=== PATIENT | female | born 1950 | race Caucasian/White ===

== ENCOUNTER 2018-11-11 04:17 | Emergency (ER) | payer MEDICARE, OTHER ==
--- NOTE | 2018-11-11 04:35 | ED ---
Back Pain - HPI Summary HPI Summary: A 67 y/o F presents to ED c/o L-sided back pain radiating to her underarm and L ribs onset five days ago. She was in the car and leaned over the console and hit her L-side. She had pain immediately, and the pain has been worsening. She s been taking OTC medications and hot showers to mild relief. Aggravating factors: sitting, lying, sneezing. There is no bruising on her L-side. She took 2 tabs ASA 500mg ATG [employer]. - History of Current Complaint Chief Complaint: EDGeneral Stated Complaint: POSS BRUISED RIBS/IN PAIN PER PT Hx Obtained From: Patient, Family/Sales Project Manager Onset/Duration: Sudden Onset, Lasting Days, Still Present Onset/Duration: Traumatic, Still Present Timing: Constant Back Pain Location: Is Diffuse - L back, L armpit, L ribs Severity Initially: Moderate Severity Currently: Severe Pain Intensity: 8 Pain Scale Used: 0-10 Numeric Aggravating Symptom(s): Other - sitting, lying, sneezing Alleviating Symptom(s): Heat - hot showers, mildly, OTC Meds - mildly Associated Signs And Symptoms: Negative: Bruising - Allergies/Home Medications Allergies/Adverse Reactions: Allergies Allergy/AdvReac Type Severity Reaction Status Date / Time No Known Allergies Allergy Verified 11/11/18 04:23 PMH/Surg Hx/FS Hx/Imm Hx Previously Healthy: No Cardiovascular History: Reports: Hx Hypertension Neurological History: Denies: Hx Dementia Infectious Disease History: No Infectious Disease History: Denies: Traveled Outside the [place] in Last 30 Days - Family History Known Family History: Positive: Non-Contributory - Social History Occupation: Retired Lives: With Family Review of Systems Musculoskeletal: Other - pos: L-sided back, armpit and rib pain Negative: Bruising All Other Systems Reviewed And Are Negative: Yes Physical Exam - Summary Physical Exam Summary: Appearance: Well-appearing, Well-nourished, lying in bed comfortable Skin: Warm, dry, no obvious rash Eyes: sclera anicteric, no conjunctival pallor ENT: mucous membranes moist Neck: deferred Respiratory: No signs of respiratory distress Cardiovascular: Appears well perfused, pulses are nml Abdomen: deferred Musculoskeletal: Focal muscle tenderness and spasm in L paravertebral muscles in L upper lumber spine Neurological: Awake and alert, mentation is normal, speech is fluent and appropriate Psychiatric: affect is normal, does not appear anxious or depressed Triage Information Reviewed: Yes Vital Signs On Initial Exam: Initial Vitals Temp Pulse Resp BP Pulse Ox 97.2 F 91 16 176/101 98 11/11/18 04:19 11/11/18 04:19 11/11/18 04:19 11/11/18 04:19 11/11/18 04:19 Vital Signs Reviewed: Yes Procedures - Procedure Summary Procedure Summary: Trigger point injection of 3mL of 50-50 mix of 0.5% Marcaine with Epi and 2% Lido with Epi in area of maximum tenderness in lower back. Diagnostics - Vital Signs Vital Signs Temp Pulse Resp BP Pulse Ox 11/11/18 04:19 97.2 F 91 16 176/101 98 - Laboratory Lab Statement: Any lab studies that have been ordered have been reviewed, and results considered in the medical decision making process. Back Pain Course/Dx - Course Course Of Treatment: Patient is a 67 y/o F presenting with L-sided back pain radiating to her underarm and L ribs onset five days ago and worsening. She was in the car and leaned over the console and hit her L-side. PE finds focal muscle tenderness and spasm in L paravertebral muscles in L upper lumber spine. Trigger point injection of 3mL of 50-50 mix of 0.5% Marcaine with Epi and 2% Lido with Epi in area of maximum tenderness in lower back. Will discharge patient home with Ativan and Oxycodone for pain and to f/u with her PCP. - Diagnoses Provider Diagnoses: Strain of thoracic spine Discharge - Sign-Out/Discharge Documenting (check all that apply): Patient Departure - D/C Patient Received Moderate/Deep Sedation with Procedure: No - Discharge Plan Condition: Good Disposition: HOME Prescriptions: LORazepam TAB(*) [Ativan 0.5 MG TAB (*)] 0.5 mg PO Q8H PRN #15 tab MDD 3 PRN Reason: Spasms - Back oxyCODONE TAB* [Roxycodone TAB 5 mg*] 5 mg PO Q4H PRN #15 tab MDD 4 PRN Reason: Pain Patient Education Materials: Thoracic Back Strain (ED) Referrals: Jeffry Madsen MD [Primary Care Provider] - - Billing Disposition and Condition Condition: GOOD Disposition: Home - Attestation Statements Document Initiated by [email or web address]: Yes Documenting Scribe: Jamar Bear Provider For Whom Isaac is Documenting (Include Credential): Dr. Neo Dumont MD Scribe Attestation: I, Jamar Bear, scribed for Dr. Neo Dumont MD on 11/15/18 at 0114. Scribe Documentation Reviewed: Yes Provider Attestation: The documentation as recorded by the isaac, Jamar Bear accurately reflects the service I personally performed and the decisions made by me, Dr. Neo Dumont MD Status of Scribe Document: Viewed
[2018-11-11] MEDS ORDERED: Bupivacaine 0.5% W/EPI SDV* 30 ML VIAL INJ ONE (04:37)
[2018-11-11] MEDS ORDERED: LORazepam TAB(*) 1 MG PO ONE (04:38)
[2018-11-11] MEDS ORDERED: Lidocaine 2% w/ EPI 1:200,000* 20 ML VIAL INJ ONE (04:38)
[2018-11-11] MEDS ORDERED: oxyCODONE TAB* 5 MG TAB PO ONE (04:39)
[2018-11-11 05:01] VITALS: BP 169/74
== END 2018-11-11 05:00 | disposition home or self-care (01) ==
LOC: ED 04:17
DX: S29.012A Strain of muscle and tendon of back wall of thorax, initial encounter (principal); W22.09XA Striking against other stationary object, initial encounter; Y92.810 Car as the place of occurrence of the external cause; I10 Essential (primary) hypertension; M60.9 Myositis, unspecified
CPT/HCPCS: 20552; 96372; 99282; A9270-GY